=== PATIENT | female | born 1980 | race Caucasian/White ===

== ENCOUNTER → 2019-11-12 | Outpatient (CLI) | payer BC ==
[2019-11-12 08:30] LABS: POTASSIUM 4.5 mmol/L (3.5-5.1)
[2019-11-12 08:31] LABS: CALCIUM 8.6 mg/dL (8.3-10.5)
[2019-11-12 08:33] LABS: TOTAL PROTEIN 6.5 g/dL (6.4-8.3)
[2019-11-12 08:34] LABS: TOTAL BILIRUBIN 0.8 mg/dL (0.2-1.2)
[2019-11-12 08:37] LABS: HEMATOCRIT 45.9 % (37.0-47.0); MEAN PLATELET VOLUME 8.6 fl (7.4-10.4); RED BLOOD COUNT 4.84 M/mm3 (4.10-5.30); RED CELL DISTRIBUTION WIDTH 13.4 % (11.5-14.5); WHITE BLOOD COUNT 4.3 K/mm3 (4.8-10.8)
[2019-11-12 09:48] LABS: URINE APPEARANCE CLEAR; URINE BILIRUBIN NEGATIVE (NEGATIVE); URINE BLOOD NEGATIVE (NEGATIVE); URINE COLOR YELLOW; URINE GLUCOSE NEGATIVE (NEGATIVE); URINE KETONE NEGATIVE (NEGATIVE); URINE LEUKOCYTE ESTERASE NEGATIVE (NEGATIVE); URINE NITRATE NEGATIVE (NEGATIVE); URINE PROTEIN(semi-quant) NEGATIVE (NEGATIVE); URINE UROBILINOGEN NORMAL (NORMAL)
== END ==
LOC: LAB 07:58
PROVIDERS: Family Medicine
DX: Z00.00 Encounter for general adult medical examination without abnormal findings (principal)

== ENCOUNTER → 2020-03-30 | Outpatient (CLI) | payer BC | LOC: MAMMO 03-21 13:00 | DX: Z12.31 Encounter for screening mammogram for malignant neoplasm of breast (principal) ==

== ENCOUNTER → 2020-12-14 | Outpatient (CLI) | payer BC ==
[2020-12-14 15:15] LABS: BASO # 0.04 (0.02-0.10); EOS # 0.14 (0.04-0.40); HEMATOCRIT 43.2 % (37.0-47.0); HEMOGLOBIN 14.6 g/dL (12.5-16.0); LYMPH# 1.46 (1.50-4.00); MEAN CELL VOLUME 93 fl (78-100); MEAN CORPUSCULAR HEMOGLOBIN 32 pg (27-31); MEAN CORPUSCULAR HGB CONC 34 g/dL (33-37); MEAN PLATELET VOLUME 8.3 fl (7.4-10.4); MONO # 0.62 (0.20-0.80); PLATELET COUNT 282 K/mm3 (130-400); RED BLOOD COUNT 4.64 M/mm3 (4.10-5.30); RED CELL DISTRIBUTION WIDTH 12.6 % (11.5-14.5); WHITE BLOOD COUNT 6.9 K/mm3 (4.8-10.8)
[2020-12-14 16:27] LABS: D-DIMER 0.17 mg/L FEU (0.15-0.50)
== END ==
LOC: AMSURD 14:56
PROVIDERS: Nurse Practitioner Primary Care
DX: R07.9 Chest pain, unspecified (principal)

== ENCOUNTER → 2021-04-10 | Outpatient (CLI) | payer BC | LOC: MAMMO 10:04 | DX: Z12.31 Encounter for screening mammogram for malignant neoplasm of breast (principal) ==

== ENCOUNTER → 2023-09-15 | Outpatient (CLI) | payer BC | LOC: MAMMO 09:20 | DX: Z12.31 Encounter for screening mammogram for malignant neoplasm of breast (principal); Z98.82 Breast implant status ==

== ENCOUNTER → 2024-03-10 | Outpatient (CLI) | payer BC | LOC: RAD 09:29 | DX: M25.521 Pain in right elbow (principal) ==